=== PATIENT | male | born 1975 | race Caucasian/White ===

== ENCOUNTER 2020-04-24 06:32 | Day surgery (SDC) | payer OTHER ==
[~2020-04-24] VITALS: Ht 167.6 cm; Wt 72.9 kg
[2020-04-24] MEDS ORDERED: LACTATED RINGERS 1,000 ML IV SCH (06:59)
[2020-04-24] MEDS ORDERED: no home med (07:07)
[2020-04-24] MEDS ORDERED: CHLORHEXIDINE 15 ML UDC ONE (07:23)
[2020-04-24] MEDS ORDERED: CHLORHEXIDINE 15 ML UDC MM ONE (07:30)
[2020-04-24 07:31] VITALS: BP 129/84
[2020-04-24] MEDS ORDERED: BACITRACIN OINT 500U/GM, 15 GM ONE (08:48)
[2020-04-24] MEDS ORDERED: BACITRACIN 50,000 UNIT ONE (08:48)
[2020-04-24] MEDS ORDERED: BUPIVACAINE/EPI 0.5% 1:200K ONE (08:48)
[2020-04-24] MEDS ORDERED: MIDAZOLAM 1 MG/ML, 2ML ONE (08:54)
[2020-04-24] MEDS ORDERED: FENTANYL PF 250 MCG/5ML ONE ×2 (08:55→09:57)
[2020-04-24] MEDS ORDERED: THROMBIN 20,000 UNIT VIAL TP ONE (09:11)
[2020-04-24] MEDS ORDERED: DEXAMETHASONE 4 MG/ML, 1ML ONE (09:37)
[2020-04-24] MEDS ORDERED: CEFAZOLIN 1,000 MG ONE (09:37)
[2020-04-24] MEDS ORDERED: ROCURONIUM 10 MG/ML,10ML ONE (09:37)
[2020-04-24] MEDS ORDERED: SUCCINYLCHOLINE 20 MG/ML, 10ML ONE (09:37)
[2020-04-24] MEDS ORDERED: ONDANSETRON 2MG/ML, 2ML ONE (09:37)
[2020-04-24] MEDS ORDERED: PROPOFOL 10 MG/ML, 20ML ONE (09:37)
[2020-04-24] MEDS ORDERED: HYDROmorphone 1 MG/ML, 1ML INJ IV PRN (10:30)
[2020-04-24] MEDS ORDERED: OXYcodone 5 MG/5 ML ORAL.SOL UDC PO PRN (10:30)
[2020-04-24] MEDS ORDERED: ONDANSETRON 2MG/ML, 2ML IVPush PRN (10:30)
[2020-04-24] MEDS ORDERED: hydrALAzine 20 MG/ML, 1ML IV PRN (10:30)
[2020-04-24] MEDS ORDERED: DIAZEPAM 5 MG/ML, 2ML IV PRN ×2 (10:30)
[2020-04-24] MEDS ORDERED: MEPERIDINE/PF 25MG/0.5ML IVPush PRN (10:30)
[2020-04-24] MEDS ORDERED: METOCLOPRAMIDE 5 MG/ML, 2ML IV PRN (10:30)
[2020-04-24] MEDS ORDERED: LABETALOL 5MG/ML, 20ML IV PRN (10:30)
[2020-04-24] MEDS ORDERED: ALBUTEROL SULFATE 2.5 MG/3 ML NPPB PRN (10:30)
[2020-04-24] MEDS ORDERED: PROMETHAZINE 25 MG/ML, 1ML IV PRN (10:30)
[2020-04-24] MEDS ORDERED: KETOROLAC 30 MG/1 ML IV PRN (10:30)
[2020-04-24] MEDS ORDERED: FENTANYL PF 100 MCG/2ML ONE (11:26)
[2020-04-24] MEDS: FENTANYL PF 100 MCG/2ML IV PRN ×2 (11:27→11:35)
[2020-04-24] MEDS ORDERED: OXYcodone 5 MG/5 ML ORAL.SOL UDC ONE (11:44)
== END 2020-04-24 13:45 | disposition home or self-care (01) ==
LOC: OUT 06:32
PROVIDERS: ATTEND Neurological Surgery
DX: S33.39XA Dislocation of other parts of lumbar spine and pelvis, initial encounter (principal); Z11.59 Encounter for screening for other viral diseases; M48.07 Spinal stenosis, lumbosacral region; M54.16 Radiculopathy, lumbar region; M21.371 Foot drop, right foot; Z79.1 Long term (current) use of non-steroidal anti-inflammatories (NSAID); Z79.891 Long term (current) use of opiate analgesic; Z79.899 Other long term (current) drug therapy; Z80.9 Family history of malignant neoplasm, unspecified; X50.0XXA Overexertion from strenuous movement or load, initial encounter; Y93.89 Activity, other specified; Y92.69 Other specified industrial and construction area as the place of occurrence of the external cause; Y99.0 Civilian activity done for income or pay
CPT/HCPCS: 63030; 72100; 95938; 95941; J0330; J0690; J1100; J2250; J2405; J2704; J3010; J7120